=== PATIENT | male | born 1955 | race Caucasian/White ===

== ENCOUNTER → 2017-05-22 | Outpatient (CLI) | payer BC ==
[~2017-05-22] MED LIST: AMLODIPINE BESY10 MG PO; ASPIRIN325 PO; BYSTOLIC 5 MG5 M1 PO; BYSTOLIC10 MG PO; EDARBYCLOR 40-1 EACH PO; FISH OIL 1,001000 M2 PO; FLOMAX0.4 MG PO; LEXAPRO 10 MG T10 M1 PO; NORCO 5-325 TA1 EACH PO; UNICOMPLEX M TA1 TA1 PO; ZOFRAN ODT4 MG PO
== END ==
LOC: RAD 08:24
DX: Z09 Encounter for follow-up examination after completed treatment for conditions other than malignant neoplasm (principal); J93.9 Pneumothorax, unspecified; J98.11 Atelectasis

== ENCOUNTER 2017-11-10 22:42 | Emergency (ER) | payer BC ==
[~2017-11-10] VITALS: Ht 246.4 cm; Wt 113.4 kg
[~2017-11-10 22:42] MED LIST changes: -FLOMAX0.4 MG PO; -NORCO 5-325 TA1 EACH PO; -ZOFRAN ODT4 MG PO
[2017-11-10 23:16] LABS: URINE BILIRUBIN NEGATIVE (Negative); URINE BLOOD 3+ (Negative); URINE CLARITY CLEAR; URINE COLOR YELLOW; URINE GLUCOSE-RANDOM* NEGATIVE (Negative); URINE KETONES TRACE (Negative); URINE LEUKOCYTES-REFLEX NEGATIVE (Negative); URINE NITRITE-REFLEX NEGATIVE (Negative); URINE PROTEIN (DIPSTICK) NEGATIVE (Negative); URINE SPECIFIC GRAVITY 1.015 (1.005-1.035); URINE UROBILINOGEN 0.2 E.U./dl (0.2-1.0)
[2017-11-10 23:24] LABS: CASTS None Seen /LPF (None Seen); MUCUS None Seen strn/LPF (None Seen); SQUAMOUS None Seen /LPF (0-3)
[2017-11-10 23:25] LABS: BACTERIA-REFLEX None Seen /HPF (None Seen); CRYSTALS None Seen /LPF (None Seen); URINE WBC-REFLEX None Seen /HPF (0-5)
[2017-11-10 23:33] LABS: ABSOLUTE NEUTROPHILS 14.4 thou/uL (1.4-8.2); BASOPHILS 0.6 % (0.0-2.0); EOSINOPHILS 0.2 % (0.0-3.0); HEMATOCRIT 46.1 % (42.0-52.0); HEMOGLOBIN 16.1 gm/dL (14.0-18.0); LYMPHOCYTES 7.6 % (24.0-44.0); MCH 30.2 pg (26.0-34.0); MCV 86.4 fL (80.0-100.0); MONOCYTES 3.4 % (1.0-8.0); PLATELET COUNT 253 thou/uL (150-400); POLYS 88.2 % (36.0-66.0); RBC 5.34 mil/uL (4.50-6.00); RDW 13.4 % (10.5-14.5); WBC 16.4 thou/uL (4.0-11.0)
[2017-11-10 23:36] LABS: CALCIUM 9.4 mg/dL (8.5-10.1); POTASSIUM 3.5 mmol/L (3.5-5.1)
[2017-11-10 23:42] LABS: ALBUMIN 4.4 g/dL (3.4-5.0); DIRECT BILIRUBIN 0.2 mg/dL (<0.1-0.3); TOTAL BILIRUBIN 0.8 mg/dL (<0.1-1.0); TOTAL PROTEIN 7.9 g/dL (6.4-8.2)
[2017-11-11] MEDS ORDERED: NORCO 5-325 TA1 EACH PO (01:11)
[2017-11-11] MEDS ORDERED: FLOMAX0.4 MG PO (01:11)
[2017-11-11] MEDS ORDERED: ZOFRAN ODT4 MG PO (01:11)
== END 2017-11-11 01:26 | disposition home or self-care (01) ==
LOC: ER 22:42
PROVIDERS: Emergency Medicine
DX: N20.1 Calculus of ureter (principal); I10 Essential (primary) hypertension; Z88.5 Allergy status to narcotic agent

== ENCOUNTER 2018-08-21 05:35 | Day surgery (SDC) | payer BC ==
[~2018-08-21] VITALS: Ht 177.8 cm; Wt 117.9 kg
[~2018-08-21 05:35] MED LIST changes: +FLOMAX0.4 MG PO; +NORCO 5-325 TA1 EACH PO; +PRAVACHOL40 MG PO; +SPIRONOLACTONE25 M1 PO; +ZOFRAN ODT4 MG PO
[2018-08-21 07:43] VITALS: BP 118/62
--- NOTE | 2018-08-25 06:15 | O ---
[facility] [place] [address] OPERATIVE REPORT Name: MANUELA VELÁSQUEZ Room #: DEP [facility]#: [id number] Admission: 08/21/18 ������������������ Attend Phys: Robin Markham MD Discharge: 08/21/18 ������������������ Date of : 53 Report #: [id number] THIS REPORT FOR: //name// CC: Adan [facility]AL [facility]ENTER[facility] Markham DATE OF SERVICE: 08/21/2018 SURGEON: Robin Markham MD QA CONSULTANT: None. PREOPERATIVE DIAGNOSIS: Bilateral upper lid dermatochalasia with superior visual field defect. POSTOPERATIVE DIAGNOSIS: Bilateral upper lid dermatochalasia with superior visual field defect. OPERATION PERFORMED: Bilateral upper lid functional blepharoplasty. ANESTHESIA: Local with IV sedation. COMPLICATIONS: None. INDICATIONS FOR SURGERY: This patient has acquired upper lid dermatochalasia with superior visual field loss both eyes because of excessive upper lid tissues to include skin and fat. Visual field testing demonstrates dense superior visual defects. Retesting with the upper lid elevated shows an improvement in visual field loss of over 30% and in excess of 12 degrees. The current procedures are undertaken in order to improve the patient's visual function. Informed consent was obtained to include but not limited to the loss of vision, bleeding, infection, scarring, failure to improve the problem and need for further surgery. DESCRIPTION OF OPERATION: The patient was taken to the operating room, where 2% Xylocaine with epinephrine mixed with equal parts of 0.75% Marcaine with Wydase was administered transcutaneously to each upper lid. The patient was then prepped and draped in the usual sterile fashion and a skin-marking pen was then utilized to outline an upper lid crease that was symmetrical on each side. Graefe forceps were then used to quantitate the redundant upper lid skin and it was similarly outlined. The incisions were then made with Kirill scissors and a skin-muscle flap removed from each side with high-temp cautery. Hemostasis was achieved with the monopolar cautery as it was throughout the case. The [address] [address] OPERATIVE REPORT Name: MANUELA VELÁSQUEZ Room #: DEP [facility] Parvin.#: [id number] Admission: 08/21/18 ������������������ Attend Phys: Robin Markham MD Discharge: 08/21/18 ������������������ Date of : 53 Report #: [id number] orbital septum was then identified and the central and medial fat pads were inspected. The redundant soft tissue was then sculpted with the monopolar cautery. The upper lid crease was then reformed with tightening of the pretarsal orbicularis muscle. The upper lid crease was then further reformed with multiple interrupted 6-0 chromic sutures. The skin was then closed with a running 6-0 plain gut suture. The wound was then cleaned and dressed with ophthalmic antibiotic ointment and a nonstick dressing. The patient was transported to the recovery area, where cold compresses were applied, having tolerated the procedure well with no anesthetic or operative complications being noted. ��������������������������������������������� <ELECTRONICALLY SIGNED> ���������������������������������������� By: Robin Markham MD ��������������������������������������������� 08/25/18 0615 [id number] Robin Markham MD /nt
== END 2018-08-21 10:50 | disposition home or self-care (01) ==
LOC: OR 05:35 → TBA 05:36 → OR 10:50
DX: H02.834 Dermatochalasis of left upper eyelid (principal); H02.831 Dermatochalasis of right upper eyelid; H53.462 Homonymous bilateral field defects, left side; H53.461 Homonymous bilateral field defects, right side; I10 Essential (primary) hypertension; I25.10 Atherosclerotic heart disease of native coronary artery without angina pectoris; E78.5 Hyperlipidemia, unspecified; G47.33 Obstructive sleep apnea (adult) (pediatric); F32.89 Other specified depressive episodes; Z87.442 Personal history of urinary calculi; Z98.890 Other specified postprocedural states; Z88.6 Allergy status to analgesic agent; Z88.8 Allergy status to other drugs, medicaments and biological substances; Z79.82 Long term (current) use of aspirin; Z79.899 Other long term (current) drug therapy
CPT/HCPCS: 50010; 50101; 50386; 50398; 51636; 56531; 62110; 62850; 70005

== ENCOUNTER → 2019-11-27 | Outpatient (CLI) | payer OTHER | LOC: CAT 15:11 | PROVIDERS: ATTEND Internal Medicine Cardiovascular Disease | DX: I25.10 Atherosclerotic heart disease of native coronary artery without angina pectoris (principal); E78.00 Pure hypercholesterolemia, unspecified ==

== ENCOUNTER → 2019-12-25 | Outpatient (CLI) | payer OTHER, MEDICARE | LOC: SJCVCIMAG 08:40 | PROVIDERS: ATTEND Internal Medicine Cardiovascular Disease | DX: I49.3 Ventricular premature depolarization (principal); I42.8 Other cardiomyopathies; R93.1 Abnormal findings on diagnostic imaging of heart and coronary circulation; I25.10 Atherosclerotic heart disease of native coronary artery without angina pectoris; I10 Essential (primary) hypertension ==

== ENCOUNTER → 2020-08-16 | Outpatient (CLI) | payer OTHER, MEDICARE | LOC: SJCVC 10:20 | PROVIDERS: ATTEND Internal Medicine Cardiovascular Disease | DX: I25.10 Atherosclerotic heart disease of native coronary artery without angina pectoris (principal); I10 Essential (primary) hypertension; E78.00 Pure hypercholesterolemia, unspecified; I42.8 Other cardiomyopathies; G47.33 Obstructive sleep apnea (adult) (pediatric); Z82.49 Family history of ischemic heart disease and other diseases of the circulatory system; E78.5 Hyperlipidemia, unspecified; Z79.82 Long term (current) use of aspirin; Z79.899 Other long term (current) drug therapy; Z88.8 Allergy status to other drugs, medicaments and biological substances; Z72.89 Other problems related to lifestyle; Z86.16 Personal history of COVID-19 ==

== ENCOUNTER → 2021-04-12 | Outpatient (CLI) | payer OTHER, MEDICARE | LOC: SJCVCIMAG 04-03 15:49 | PROVIDERS: ATTEND Internal Medicine Cardiovascular Disease | DX: I42.8 Other cardiomyopathies (principal) ==